=== PATIENT | male | born 1990 | race Caucasian/White ===

== ENCOUNTER 2018-05-24 14:01 | Emergency (ER) | payer OTHER, BC ==
[2018-05-24 14:13] VITALS: BP 155/84
--- NOTE | 2018-05-24 14:57 | XRAY Report ---
Procedure Date: 05/24/2018 Accession Number: [id number] / [id number] Procedure: XR - Elbow 3 View RT CPT Code: FULL RESULT: EXAM: RIGHT ELBOW RADIOGRAPHY EXAM DATE: 05/24/2018 02:49 PM. CLINICAL HISTORY: Pain after having lifting 1 day ago. COMPARISON: None. TECHNIQUE: 3 views. FINDINGS: Bones: Normal. No fractures or bone lesions. Joints: Normal. No effusion. No subluxation. Soft Tissues: Normal. No soft tissue swelling. IMPRESSION: Normal elbow radiography. [facility]
[2018-05-24] MEDS ORDERED: IBUPROFEN 400 MG TABLET PO STA (15:39)
--- NOTE | 2018-05-24 15:53 | ED Physician Documentation ---
History of Present Illness - Stated complaint Stated Complaint: R ARM INJ - Chief complaint Chief Complaint: Ext Problem - Additonal information Additional information: hx from pt young healthy male work at [employer] job involves lifting and vibration R elbow pain no direct blow no hx of same R handed Review of Systems Musculoskeletal: reports: Joint pain PD PAST MEDICAL HISTORY - Past Medical History Past Medical History: No - Past Surgical History Past Surgical History: No - Present Medications Home Medications: Ambulatory Orders Medication Instructions Recorded Confirmed Ibuprofen [Motrin] 400 mg PO Q6H PRN #30 tablet 05/24/18 - Allergies Allergies/Adverse Reactions: Allergies Allergy/AdvReac Type Severity Reaction Status Date / Time acetaminophen [From Vicodin] Allergy Nausea Verified 05/24/18 14:09 hydrocodone [From Vicodin] Allergy Nausea Verified 05/24/18 14:09 - Social History Does the pt smoke?: No Smoking Status: Never smoker Does the pt drink ETOH?: No Does the pt have substance abuse?: No - Immunizations Immunizations are current?: Yes - POLST Patient has POLST: No PD ED PE NORMAL - Vitals Vital signs reviewed: Yes - Extremities Extremities: Other (R elbow small swelling, no deformity, TTP ant lat soft tissue (ant to lateral epicondlye), apin with bicep resistance and pronation, wrist flex ext, frip, finger ABD, OK, thumbs up all 55/, MSV intact) Results - Vitals Vitals: Vital Signs - 24 hr 05/24/18 14:05 Temperature 36.7 C Heart Rate 83 Respiratory 20 Rate Blood Pressure 155/84 H O2 Saturation 97 Oxygen O2 Source Room air - Rads (name of study) elbow Radiology: See rad report (neg) PD MEDICAL DECISION MAKING - Sepsis Event Vital Signs: Vital Signs - 24 hr 05/24/18 14:05 Temperature 36.7 C Heart Rate 83 Respiratory 20 Rate Blood Pressure 155/84 H O2 Saturation 97 Oxygen O2 Source Room air Departure - Departure Disposition: 01 Home, Self Care Clinical Impression: Biceps tendinitis Qualifiers: Laterality: right Qualified Code(s): M75.21 - Bicipital tendinitis, right shoulder Condition: Good Instructions: Biceps Tendonitis Distal Follow-Up: [facility] [Provider Group] (if not better in a week ) Prescriptions: Ibuprofen [Motrin] 400 mg PO Q6H PRN #30 tablet PRN Reason: Pain Comments: The xray was fine Your exam indicates you have tendon inflammation, likely an overuse injury This should improve with rest, ice for 20 minutes several times a day, an EMERSON wrap for support and to decrease swelling and motrin with breakfast lunch and dinner. If not better with this treatment plan, please call the orthopedics clinic for further evaluation Forms: Activity restrictions
== END 2018-05-24 16:29 | disposition home or self-care (01) ==
LOC: ED 14:01
DX: M75.21 Bicipital tendinitis, right shoulder (principal)
CPT/HCPCS: 73080; 99283; A9270

== ENCOUNTER 2023-06-11 16:15 | Outpatient (CLI) | payer MEDICAID, OTHER ==
[2023-06-11 21:17] LABS: BASOPHILS # (AUTO) 0.1 10^3/uL (0.0-0.1); BASOPHILS % (AUTO) 0.5 %; EOSINOPHILS # (AUTO) 0.1 10^3/uL (0.0-0.7); EOSINOPHILS % (AUTO) 0.8 %; HGB - HEMOGLOBIN 14.6 g/dL (14.0-18.0); LYMPHOCYTES # (AUTO) 2.1 10^3/uL (1.5-3.5); MEAN CORPUSCULAR VOLUME 88.5 fL (80.0-94.0); MEAN PLATELET VOLUME 9.6 fL (7.4-11.4); MONOCYTES # (AUTO) 0.6 10^3/uL (0.0-1.0); NEUTROPHILS # (AUTO) 6.4 10^3/uL (1.5-6.6); NEUTROPHILS % (AUTO) 69.5 %; PLT - PLATELET COUNT 298 10^3/uL (130-450); RED BLOOD COUNT 4.86 10^6/uL (4.70-6.10); RED CELL DISTRIBUTION WIDTH 13.1 % (12.0-15.0); WHITE BLOOD COUNT 9.2 x10^3/uL (4.8-10.8)
[2023-06-11 21:19] LABS: ESTIMATED AVERAGE GLUCOSE 97 mg/dL (70-100)
[2023-06-11 21:54] LABS: ALBUMIN 4.8 g/dL (3.2-5.5); ALBUMIN/GLOBULIN RATIO 1.5 (1.0-2.2); BILIRUBIN,TOTAL 0.7 mg/dL (0.2-1.0); CALCIUM 9.4 mg/dL (8.5-10.3); CREATININE 0.9 mg/dL (0.6-1.2); POTASSIUM 3.9 mmol/L (3.5-5.0); TOTAL PROTEIN 7.9 g/dL (6.7-8.2)
[2023-06-11 22:12] LABS: THYROID STIMULATING HORMONE 3.22 uIU/mL (0.34-5.60)
== END 2023-06-11 16:30 | disposition home or self-care (01) ==
LOC: LAB.N 16:15
PROVIDERS: ATTEND Registered Nurse
DX: R19.7 Diarrhea, unspecified (principal); R53.83 Other fatigue; R53.81 Other malaise; R11.2 Nausea with vomiting, unspecified
CPT/HCPCS: 36415; 80053; 83036; 84443; 85025

== ENCOUNTER 2023-08-01 10:26 | Outpatient (CLI) | payer OTHER | END 2023-08-01 10:27 | disposition home or self-care (01) | LOC: LAB 10:26 | PROVIDERS: ATTEND Physician Assistant | DX: K52.9 Noninfective gastroenteritis and colitis, unspecified (principal); R53.83 Other fatigue; R11.2 Nausea with vomiting, unspecified; R53.81 Other malaise | CPT/HCPCS: 36415; 86140; 86364 ==

== ENCOUNTER 2023-08-06 12:00 | Outpatient (CLI) | payer OTHER ==
[2023-08-06 12:21] LABS: H. PYLORIS ANTIGEN STL NEGATIVE (Negative)
== END 2023-08-06 12:01 | disposition home or self-care (01) ==
LOC: LAB.R 12:00
PROVIDERS: ATTEND Physician Assistant
DX: R53.81 Other malaise (principal); R11.2 Nausea with vomiting, unspecified; R19.7 Diarrhea, unspecified; R53.83 Other fatigue
CPT/HCPCS: 83993; 87329; 87338